=== PATIENT | female | born 1990 | race Caucasian/White ===

== ENCOUNTER 2021-03-17 04:57 | Emergency (ER) | payer OTHER ==
[~2021-03-17] VITALS: Ht 165.1 cm; Wt 99.8 kg
[2021-03-17] MEDS ORDERED: XANAX0.5 MG PO (05:06)
[2021-03-17] MEDS ORDERED: CYMBALTA30 MG PO (05:06)
[2021-03-17] MEDS ORDERED: SEPTDS PO (05:06)
== END 2021-03-17 06:39 | disposition home or self-care (01) ==
LOC: ED 04:57
DX: T78.49XA Other allergy, initial encounter (principal); Z79.899 Other long term (current) drug therapy; X58.XXXA Exposure to other specified factors, initial encounter

== ENCOUNTER 2021-03-19 18:45 | Emergency (ER) | payer OTHER ==
[~2021-03-19] VITALS: Wt 99.8 kg
[~2021-03-19 18:45] MED LIST: CYMBALTA30 MG PO; SEPTDS PO; XANAX0.5 MG PO
== END 2021-03-19 22:23 | disposition home or self-care (01) ==
LOC: ED 18:45
DX: L50.9 Urticaria, unspecified (principal); T38.0X5A Adverse effect of glucocorticoids and synthetic analogues, initial encounter; Z88.2 Allergy status to sulfonamides; Z79.899 Other long term (current) drug therapy; Y92.89 Other specified places as the place of occurrence of the external cause

== ENCOUNTER → 2021-04-25 | Outpatient (CLI) | payer OTHER | END | disposition home or self-care (01) | LOC: COVID19 15:57 | PROVIDERS: ATTEND Internal Medicine | DX: Z20.822 Contact with and (suspected) exposure to COVID-19 (principal) ==